=== PATIENT | female | born 1975 | race Caucasian/White ===

== ENCOUNTER 2017-07-07 07:45 | Outpatient (CLI) | payer BC ==
[2017-07-10 09:48] VITALS: BMI 33.0
== END 2017-07-07 09:50 ==
LOC: D.OPS 07:45
DX: K21.9 Gastro-esophageal reflux disease without esophagitis (principal); Z01.812 Encounter for preprocedural laboratory examination

== ENCOUNTER 2017-07-10 09:09 | Day surgery (SDC) | payer BC ==
[~2017-07-10] VITALS: Ht 157.5 cm; Wt 81.8 kg
--- NOTE | ~2017-07-10 | OP ---
PATIENT NAME: MARCELINA MALDONADO MEDICAL RECORD: [id number] LOCATION:[facility] ADMISSION DATE: SURGEON: REYNOLD PEREZ MD DATE OF OPERATION: 07/10/2017 PREOPERATIVE DIAGNOSES: 1. Gastroesophageal reflux disease. 2. Migraines. 3. Vertigo. 4. Chronic back pain. POSTOPERATIVE DIAGNOSES: 1. Gastroesophageal reflux disease. 2. Migraines. 3. Vertigo. 4. Chronic back pain. PROCEDURE: EGD with biopsy. SURGEON: Reynold Perez MD REPORT OF PROCEDURE: An Olympus endoscope was advanced through the mouth and esophagus. We passed through the stomach and the pylorus into the second portion of the duodenum. There was no sign of any inflammatory changes, masses, lesions or ulcerations in the duodenum. As we pulled back, a biopsy was taken of the antrum of the stomach. I saw no masses, lesions, ulcerations, or polyps in the stomach. Retroflexed view showed no sign of a hiatal hernia. I pulled back into the distal third of the esophagus. There was noted to be no signs of any ulcerations, masses or lesions. A biopsy was taken at the GE junction. At this point, the insufflation was removed from the stomach. We did a slow pull back through the patient's esophagus and saw no masses or lesions visible. COMPLICATIONS: None. CONDITION: Stable. ANESTHESIA: TIVA. BLOOD LOSS: Minimal. TRANSINT:[id number] Voice Confirmation ID: [id number] DOCUMENT ID: [id number] REYNOLD PEREZ MD at 1309 CC: CHRISTY CEDILLO MD [id number] DICTATION DATE: 07/10/17 1145 [facility] TUTOR: 07/10/17 1225 [facility] 07/10/17 [place] [address]
[2017-07-10] MEDS ORDERED: XANAX0.5 MG (09:39)
[2017-07-10] MEDS ORDERED: BUTALB-APAP-CA1 EACH PO (09:40)
[2017-07-10] MEDS ORDERED: SOMA350 MG (09:41)
[2017-07-10] MEDS ORDERED: OMEPRAZOLE40 MG PO (09:44)
[2017-07-10] MEDS ORDERED: HYDROCODONE-APA1 TAB PO (09:44)
[2017-07-10] MEDS ORDERED: ZOFRAN ODT4 MG/UDTAB PO (09:45)
[2017-07-10] MEDS ORDERED: PROPRANOLOL HCL60 MG (09:46)
[2017-07-10] MEDS ORDERED: MAXALT10 MG PO (09:46)
[2017-07-10 09:48] VITALS: BP 141/66; Ht 157.5 cm; Wt 81.8 kg
[2017-07-10 09:57] LABS: BASOPHILS 0.9 % (0-2); EOSINOPHILS 2.7 % (0-7); HEMATOCRIT 37.7 % (36.0-48.0); HEMOGLOBIN 12.1 g/dL (12-16); IMMATURE GRANULOCYTES 0.5 % (0-5); LYMPHOCYTES 26.6 % (15-50); MCH 26.5 pg (26.0-34.0); MCHC 32.1 g/dL (31.0-37.0); MCV 82.7 fL (80.0-100.0); MEAN PLATELET VOLUME 10.1 fL (7.4-10.4); MONOCYTES 10.3 % (2-11); PLATELET COUNT 270 10x3/uL (130-400); RBC 4.56 10x6/uL (4.00-5.40); RDW 13.7 % (11.5-14.5); WBC 5.8 10x3/uL (4.8-10.8)
[2017-07-10 10:12] LABS: ANION GAP 12.5 mmol/L (8-16); CALCIUM 8.9 mg/dL (8.5-10.1); CARBON DIOXIDE 25.7 mmol/L (21.0-32.0); CREATININE - SERUM 0.9 mg/dL (0.6-1.3); POTASSIUM - SERUM 4.2 mmol/L (3.5-5.1)
[2017-07-10 10:17] LABS: HCG URINE NEGATIVE (NEGATIVE)
== END 2017-07-10 12:45 | disposition home or self-care (01) ==
LOC: D.OPS 09:09
PROVIDERS: Surgery
DX: K21.9 Gastro-esophageal reflux disease without esophagitis (principal); G43.909 Migraine, unspecified, not intractable, without status migrainosus; R42 Dizziness and giddiness; G89.29 Other chronic pain; Z01.812 Encounter for preprocedural laboratory examination

== ENCOUNTER 2019-07-11 22:13 | Emergency (ER) | payer BC ==
[~2019-07-11] VITALS: Ht 157.5 cm; Wt 87.3 kg
[~2019-07-11 22:13] MED LIST: BUTALB-APAP-CA1 EACH PO; HYDROCODONE-APA1 TAB PO; MAXALT10 MG PO; OMEPRAZOLE40 MG PO; PROPRANOLOL HCL60 MG; SOMA350 MG; XANAX0.5 MG; ZOFRAN ODT4 MG/UDTAB PO
[2019-07-11 22:37] VITALS: Ht 157.5 cm; Wt 87.3 kg
[2019-07-11 23:05] LABS: BASOPHILS 0.4 % (0-2); EOSINOPHILS 1.9 % (0-7); HEMATOCRIT 42.5 % (36.0-48.0); HEMOGLOBIN 13.9 g/dL (12-16); IMMATURE GRANULOCYTES 0.5 % (0-5); LYMPHOCYTES 27.2 % (15-50); MCH 30.3 pg (26.0-34.0); MCHC 32.7 g/dL (31.0-37.0); MCV 92.8 fL (80.0-100.0); MEAN PLATELET VOLUME 9.8 fL (7.4-10.4); MONOCYTES 6.2 % (2-11); NEUTROPHILS 63.8 % (40-80); PLATELET COUNT 270 10x3/uL (130-400); RBC 4.58 10x6/uL (4.00-5.40); RDW 12.9 % (11.5-14.5); WBC 8.4 10x3/uL (4.8-10.8)
[2019-07-11 23:20] LABS: ANION GAP 12.2 mmol/L (8-16); CALCIUM 9.1 mg/dL (8.5-10.1); CARBON DIOXIDE 29.6 mmol/L (21.0-32.0); CREATININE - SERUM 1.1 mg/dL (0.6-1.3); POTASSIUM - SERUM 3.8 mmol/L (3.5-5.1)
[2019-07-11 23:26] LABS: ALBUMIN 4.3 g/dL (3.4-5.0); BILIRUBIN - TOTAL 0.33 mg/dL (0.2-1.3); PROTEIN - SERUM 7.8 g/dL (6.4-8.2)
[2019-07-11 23:27] LABS: BILIRUBIN NEGATIVE (NEGATIVE); GLUCOSE NEGATIVE (NEGATIVE); KETONE SMALL mg/dL (NEGATIVE); NITRITE NEGATIVE (NEGATIVE); SPECIFIC GRAVITY 1.015 (1.005-1.020); UROBILINOGEN NORMAL (NORMAL)
[2019-07-12 00:55] VITALS: BP 129/90
== END 2019-07-12 00:55 | disposition home or self-care (01) ==
LOC: D.ER 22:13
PROVIDERS: Family Medicine
DX: R10.12 Left upper quadrant pain (principal); K29.70 Gastritis, unspecified, without bleeding; K21.9 Gastro-esophageal reflux disease without esophagitis